=== PATIENT | female | born 1990 ===

== ENCOUNTER → 2020-06-22 | Outpatient (CLI) | payer OTHER ==
[~2020-06-22] MED LIST: FORT1000TA; IBU800 M1 PO; PERCOCET 325 MG1 TA2 PO; PRENATAL
== END ==
LOC: ZCOL.LAB 12:20
DX: Z20.822 Contact with and (suspected) exposure to COVID-19 (principal)

== ENCOUNTER 2020-06-25 08:18 | Inpatient (IN) | payer OTHER ==
[~2020-06-25] VITALS: Ht 162.6 cm; Wt 76.4 kg
[2020-06-30] VITALS (51 sets, daily range): BP systolic 109–147; BP diastolic 57–96; PULSE 73–126; TEMP 97.3–98.5
[2020-06-30 07:17] LABS: BASO % 0.4 % (0.0-2.0); EOS # 0.1 (0.0-0.7); EOS % 1.9 % (0-4.0); GRAN # 4.4 (1.4-6.5); GRAN % 58.9 % (42.2-75.2); HEMOGLOBIN 12.2 g/dl (12.5-16.0); LYMPH % 27.1 % (20.0-51.0); MEAN CELL VOLUME 91 fl (80.0-100.0); MEAN CORPUSCULAR HEMOGLOBIN 31 pg (27.0-31.0); MEAN CORPUSCULAR HGB CONC 34 g/dl (33.0-37.0); MEAN PLATELET VOLUME 11.7 fl (7.4-10.4); MONO # 0.8 (0.1-0.6); MONO % 10.6 % (1.7-9.3); PLATELET COUNT 146 K/mm3 (130-400); RED BLOOD COUNT 3.89 M/mm3 (4.10-5.30); REDCELL DISTRIBUTION WIDTH-CV 12.9 % (11.5-14.5)
[2020-06-30 07:22] LABS: HEMATOCRIT 35.5 % (37.0-47.0)
[2020-06-30] MEDS ORDERED: FORT1000TA (07:23)
[2020-06-30] MEDS ORDERED: PRENATAL (07:23)
[2020-06-30 08:36] LABS: ALBUMIN 3.4 gm/dL (3.5-5.0); BILIRUBIN,TOTAL 0.2 mg/dL (0.0-1.0); CALCIUM 8.5 mg/dL (8.4-10.2); CREATININE, serum 0.41 (0.52-1.25); POTASSIUM 4.1 mmol/L (3.4-5.0); TOTAL PROTEIN 6.5 gm/dL (6.4-8.2)
[2020-06-30 12:39] LABS: COLLECTION METHOD CATHETER
[2020-06-30 12:44] LABS: MUCOUS Present /lpf; PH 8 (5-8); SQUAMOUS EPITHELIAL None Seen /hpf; URINE APPEARANCE Clear; URINE BACTERIA None Seen /hpf; URINE BILIRUBIN Negative (NEGATIVE); URINE BLOOD Negative (NEGATIVE); URINE COLOR Yellow; URINE GLUCOSE Negative (NEGATIVE); URINE KETONE Negative (NEGATIVE); URINE LEUKOCYTE ESTERASE Negative (NEGATIVE); URINE NITRATE Negative (NEGATIVE); URINE PROTEIN(semi-quant) Negative (NEGATIVE); URINE UROBILINOGEN Negative (NEGATIVE); URINE WBC 0-2 /hpf
[2020-07-01 01:30] VITALS: BP 119/63; PULSE 103; TEMP 98.8
[2020-07-01 04:56] VITALS: BP 122/80; PULSE 80; TEMP 98.3
[2020-07-01 06:40] VITALS: BP 99/61; PULSE 70; TEMP 98.6
[2020-07-01 12:29] VITALS: BP 128/72; PULSE 88; TEMP 98.3
[2020-07-01] MEDS ORDERED: IBU800 M1 PO (17:07)
[2020-07-01] MEDS ORDERED: PERCOCET 325 MG1 TA2 PO (17:08)
[2020-07-01 17:27] VITALS: BP 119/68; PULSE 98; TEMP 97.8
[2020-07-01 21:25] VITALS: BP 111/75; PULSE 92; TEMP 98.4
[2020-07-02 07:25] VITALS: BP 123/70; PULSE 86; TEMP 98.2
[2020-07-02 12:48] VITALS: PULSE 156; TEMP 98.7
[2020-07-02 12:50] VITALS: BP 128/73; PULSE 88; TEMP 97.8
[2020-07-02 16:25] VITALS: BP 122/78; PULSE 92; TEMP 98
== END 2020-07-02 16:40 | disposition home or self-care (01) | DRG 807 ==
LOC: LDR 06-30 06:40 → OB 06-30 06:40 → LDR 06-30 09:04 → OB 06-30 21:30
PROVIDERS: ADMIT Student in an Organized Health Care Education/Training Program
PROC: 10E0XZZ Delivery of Products of Conception, External Approach (ICD-10-PCS; principal; 2020-06-30)
PROC: 0KQM0ZZ Repair Perineum Muscle, Open Approach (ICD-10-PCS; 2020-06-30)
PROC: 10907ZC Drainage of Amniotic Fluid, Therapeutic from Products of Conception, Via Natural or Artificial Opening (ICD-10-PCS; 2020-06-30)
PROC: 0UQMXZZ Repair Vulva, External Approach (ICD-10-PCS; 2020-06-30)
DX: O99.824 Streptococcus B carrier state complicating childbirth (principal); Z37.0 Single live birth; Z3A.39 39 weeks gestation of pregnancy; E28.2 Polycystic ovarian syndrome; O99.284 Endocrine, nutritional and metabolic diseases complicating childbirth; O70.1 Second degree perineal laceration during delivery; O71.82 Other specified trauma to perineum and vulva
CPT/HCPCS: J2540; J2590; J7120